=== PATIENT | female | born 1940 | race Two or more races ===

== ENCOUNTER 2018-01-25 08:02 | Outpatient (CLI) | payer OTHER | END 2018-01-25 08:17 | disposition home or self-care (01) | LOC: TOM 08:02 | DX: R10.32 Left lower quadrant pain (principal); K57.30 Diverticulosis of large intestine without perforation or abscess without bleeding ==

== ENCOUNTER 2018-09-25 10:03 | Outpatient (CLI) | payer OTHER | END 2018-09-25 10:12 | disposition home or self-care (01) | LOC: LAB 10:03 | DX: D64.89 Other specified anemias (principal); E11.9 Type 2 diabetes mellitus without complications; E78.49 Other hyperlipidemia; K76.89 Other specified diseases of liver; E03.8 Other specified hypothyroidism; E55.9 Vitamin D deficiency, unspecified; R29.898 Other symptoms and signs involving the musculoskeletal system ==

== ENCOUNTER 2019-08-22 09:40 | Outpatient (CLI) | payer OTHER | END 2019-08-22 09:46 | disposition home or self-care (01) | LOC: LAB 09:40 | DX: D64.89 Other specified anemias (principal); E11.9 Type 2 diabetes mellitus without complications; E78.2 Mixed hyperlipidemia; I10 Essential (primary) hypertension; E03.8 Other specified hypothyroidism ==

== ENCOUNTER 2020-12-10 08:04 | Outpatient (CLI) | payer OTHER | END 2020-12-10 18:50 | disposition home or self-care (01) | LOC: LAB 08:04 | PROVIDERS: ATTEND Orthopaedic Surgery | DX: E83.42 Hypomagnesemia (principal); M85.89 Other specified disorders of bone density and structure, multiple sites; E56.1 Deficiency of vitamin K; M81.8 Other osteoporosis without current pathological fracture; E88.89 Other specified metabolic disorders ==

== ENCOUNTER 2022-02-08 07:17 | Outpatient (CLI) | payer OTHER | END 2022-02-08 07:22 | disposition home or self-care (01) | LOC: LAB 07:17 | PROVIDERS: ATTEND Internal Medicine Sports Medicine | DX: D64.9 Anemia, unspecified (principal); E11.9 Type 2 diabetes mellitus without complications; E78.2 Mixed hyperlipidemia; I10 Essential (primary) hypertension; E03.8 Other specified hypothyroidism ==